=== PATIENT | female | born 1995 | race Caucasian/White ===

== ENCOUNTER 2019-10-20 18:58 | Emergency (ER) | payer MEDICAID, SELFPAY ==
[2019-10-20 19:12] VITALS: BP 119/71; PULSE 95; RESP 18; TEMP 37.2; O2SAT 98; BMI 41.3
[2019-10-20 19:42] LABS: Basophils # 0.1 10^3/uL (0.0-0.1); Basophils % 0.4 %; Eosinophils # 0.2 10^3/uL (0.0-0.8); Eosinophils % 1.4 %; Hematocrit 41.3 % (37.0-47.0); Lymphocytes # 3.3 10^3/uL (0.8-4.8); Lymphocytes % 26.2 %; Mean Corpuscular HGB Conc 31.5 g/dL (30.0-36.0); Mean Corpuscular Hemoglobin 31.4 pg (28.0-34.0); Mean Corpuscular Volume 99.8 fL (81-99); Mean Platelet Volume 10.6 fL (7.4-10.4); Monocytes % 7.7 %; Neutrophils # 8.11 10^3/uL (1.8-7.7); Nucleated Red Blood Cells % 0 %; Platelet Count 277 10^3/cmm (130-400); Red Blood Count 4.14 10^6/uL (4.1-5.3); Red Cell Distribution Width 13.9 % (12.1-15.1); White Blood Count 12.7 10^3/uL (4.0-10.0)
[2019-10-20 20:14] LABS: Alanine Aminotransferase 34 U/L (0-33); Albumin Level 4.1 g/dL (3.5-5.2); Alkaline Phosphatase 72 IU/L (35-105); Aspartate Amino Transferase 17 U/L (0-32); Blood Urea Nitrogen 7 mg/dL (6-20); Calcium 9.2 mg/dL (8.5-10.5); Carbon Dioxide 21 mmol/L (22-29); Chloride 101 mmol/L (98-107); Globulin 3.3 g/dL (1.3-4.6); Glomerular Filtration Rate 152.9 mL/min (90-130); Glucose 88 mg/dL (65-115); Osmolality Calculated 273 mOsm/kg (285-295); Sodium 134 mmol/L (136-145); Total Bilirubin 0.2 mg/dL (0.15-1.2); Total Protein 7.4 g/dL (6.6-8.7)
[2019-10-20 20:15] LABS: Anion Gap 15.9 (5-19); Potassium 3.9 mmol/L (3.5-5.1)
[2019-10-20 20:20] VITALS: BP 127/72; PULSE 109; RESP 18; O2SAT 100
--- NOTE | 2019-10-20 20:28 | ED_ITS ---
HPI - Abdominal Pain General: Chief Complaint: Abdominal Pain Stated Complaint: n/v, abd pain, preg x6 weeks Time Seen by Provider: 10/20/19 20:19 Source: patient Mode of arrival: ambulatory Limitations: no limitations History of Present Illness: HPI narrative: 24-year-old female who is currently 7 weeks . Patient states she had severe vomiting and last 3 days. States she had abdominal cramping from all the vomiting. She denies any vaginal bleeding. She has had a cholecystectomy. She denies any fevers. States is intermittent in nature and denies any worsening improving factors. Associated Symptoms: Reports nausea and vomiting; Denies chills, dysuria and fever(s) Review of Systems Const: Denies: fever(s), chills, body aches or change in appetite Eyes: Denies: blurry vision or eye discomfort ENMT: Denies: throat pain or dental pain Card: Denies: chest pain Resp: Denies: dyspnea GI: Reports: abdominal pain, nausea and vomiting : Denies: dysuria Musc: Denies: neck pain or back pain Skin/Breast: Denies: rash Neuro: Denies: headache(s) Psych: Denies: depression Mitchell/Lymph: Denies: easy bruising All/Imm: Denies: urticaria Physical Exam Const: COMMON NORMALS: no acute distress, patient oriented x3 and healthy appearing HENMT: COMMON NORMALS: normocephalic and atraumatic HEAD & SCALP: normocephalic and atraumatic Eye: COMMON NORMALS: Equal, round and reactive pupils present and EOMs intact bilaterally PUPIL: Yes Equal, round and reactive pupils present Neck/C-Spine: COMMON NORMALS: full ROM and supple Chest: COMMONS NORMALS: normal inspection of the chest and normal palpation of entire chest wall Resp: COMMON NORMALS: normal respiratory effort, No retractions, No use of accessory muscles and clear to auscultation bilaterally AUSCULTATION: clear to auscultation bilaterally Cardio: COMMON NORMALS: regular rate, regular rhythm and No murmurs present (Cardio) RATE: regular rate RHYTHM: regular rhythm GI: COMMON NORMALS: Normal to inspection, nondistended, normoactive bowel sounds present, Soft to palpation, non-tender and no masses PALPATION: Yes Soft to palpation Extremity: COMMON NORMALS: normal to inspection and full ROM Neuro: COMMON NORMALS: patient oriented x3, moves all extremities and no focal motor deficits Psych: COMMON NORMALS: mental status grossly normal, Normal thought process present and cooperative THOUGHT PROCESS: Normal thought process present Skin: COMMON NORMALS: no rashes or lesions noted and no wounds GENERAL SKIN EXAM: no rashes or lesions noted Course Vital Signs: Vital signs: Vital Signs Temperature 98.9 F 10/20/19 19:12 Pulse Rate 75 10/20/19 21:47 Respiratory Rate 18 10/20/19 21:47 Blood Pressure 116/77 10/20/19 21:47 Pulse Oximetry 100 10/20/19 21:47 MDM - Abdominal Pain MDM Narrative: Medical decision making narrative: Patient presents here with hyperemesis gravidarum. She feels much improved after IV Reglan. Patient able tolerate p.o. Patient lab work here is normal. Bedside ultrasound showed IUP roughly 7 to 8 weeks. She is stable for discharge and return if worsening. Lab Data: Labs: Lab Results 10/20/19 10/20/19 Range/Units 19:30 19:30 WBC 12.7 H (4.0-10.0) 10^3/ uL RBC 4.14 (4.1-5.3) 10^6/u L Hgb 13.0 (11.5-15.3) g/dL Hct 41.3 (37.0-47.0) % MCV 99.8 H (81-99) fL MCH 31.4 (28.0-34.0) pg MCHC 31.5 (30.0-36.0) g/dL RDW 13.9 (12.1-15.1) % Plt Count 277 (130-400) 10^3/c mm MPV 10.6 H (7.4-10.4) fL Neut % (Auto) 64.0 % Lymph % (Auto) 26.2 % [place] % (Auto) 7.7 % Eos % (Auto) 1.4 % Baso % (Auto) 0.4 % Neut # (Auto) 8.11 H (1.8-7.7) 10^3/u L Lymph # (Auto) 3.3 (0.8-4.8) 10^3/u L [place] # (Auto) 1.0 H (0.2-0.9) 10^3/u L Eos # (Auto) 0.2 (0.0-0.8) 10^3/u L Baso # (Auto) 0.1 (0.0-0.1) 10^3/u L Nucleated RBC % (a uto) 0 % Nucleated RBCs # 0.0 /100WBC Sodium 134 L (136-145) mmol/L Potassium 3.9 (3.5-5.1) mmol/L Chloride 101 (98-107) mmol/L Carbon Dioxide 21 L (22-29) mmol/L Anion Gap 15.9 (5-19) BUN 7 (6-20) mg/dL Creatinine 0.5 (0.5-0.9) mg/dL GFR Calculation 152.9 H (90-130) mL/min Glucose 88 (65-115) mg/dL Calculated Osmolal ity 273 L (285-295) mOsm/k g Calcium 9.2 (8.5-10.5) mg/dL Total Bilirubin 0.2 (0.15-1.2) mg/dL AST 17 (0-32) U/L ALT 34 H (0-33) U/L Alkaline Phosphata se 72 (35-105) IU/L Total Protein 7.4 (6.6-8.7) g/dL Albumin 4.1 (3.5-5.2) g/dL Globulin 3.3 (1.3-4.6) g/dL Ser , [place] 225[address].00 mIU/mL Discharge Plan Discharge Patient Disposition: Home Clinical Impression: Hyperemesis gravidarum Condition: Stable Prescriptions: New Reglan 10 mg tablet 10 mg PO Q6H PRN (Reason: nausea and vomiting) Qty: 20 RF: 0 Discharge Orders: Discharge Order (Routine); Ordered 10/20/19 Ordered By: Alexei Perry Referrals: Payam Jauregui MD [Primary Care Provider] - 1-3 days Discharge Diet: Advance as tolerated Discharge Activity: Resume usual activity Patient Instructions: Hyperemesis Gravidarum (ED) Discharge Date/Time: 10/20/19 21:49 Coding Level of Care Code ED Airfield Manager for Chg Fwd Exam Comprehensive
[2019-10-20] MEDS: metoclopramide 5 mg/mL SDV 2 mL 10 MG IVP (20:40)
[2019-10-20] MEDS: sodium chloride 0.9% 1,000 ML 999 ML IV (20:40)
[2019-10-20] MEDS: diphenhydrAMINE 50 mg/mL SDV 1mL IVP (20:41)
[2019-10-20 21:30] VITALS: BP 116/77; PULSE 75; RESP 18; O2SAT 100
[2019-10-20 21:47] VITALS: BP 116/77; PULSE 75; RESP 18; O2SAT 100
[2019-10-20 22:19] LABS: Urine Appearance Clear (CLEAR); Urine Color Yellow (Yellow); pH Urine 6.5 (5-7)
[2019-10-20 22:20] LABS: Add Urine Microscopic? YES; Bacteria Urine 1+; Bilirubin Urine Neg (NEGATIVE); Blood Urine Neg (Negative); Glucose Urine UA Norm (Normal); Ketones Urine Negative (Negative); Leukocyte Esterase Urine 2+ (Negative); Mucus Urine 1+; Nitrate Urine Negative (Negative); Protein Urine Neg (Negative); RBC Urine 0-4 /hpf (0-2); Specific Gravity, Urine 1.015 (1.005-1.030); Urobilinogen Urine Norm (Negative); WBC Urine 15-25 /hpf (0-5)
== END 2019-10-20 21:49 | disposition home or self-care (01) ==
PROVIDERS: Nurse Practitioner Family; Emergency Provider Emergency Medicine; PCP Family Medicine
DX: O21.0 Mild hyperemesis gravidarum (principal)
CPT/HCPCS: 12345; 36415; 80053; 81001; 84702; 85025; 96361; 96374; 96375; 99283; J1200; J2765; J7030

== ENCOUNTER 2020-04-08 08:19 | Emergency (ER) | payer BC, MEDICAID, SELFPAY ==
[2020-04-08 08:30] VITALS: BP 135/77; PULSE 102; RESP 18; TEMP 36.7; O2SAT 97; BMI 42.5
[2020-04-08 08:36] VITALS: BP 135/77; PULSE 72; RESP 18; TEMP 36.7; O2SAT 98
--- NOTE | 2020-04-08 08:48 | W.ED.GENADLT ---
HPI - General Adult General: Chief complaint: General Medical Stated complaint: uti/31 Weeks preg Time Seen by Provider: 04/08/20 08:21 History of Present Illness: HPI narrative: Patient is a 31-weeks 24-year-old female who comes to the ED with UTI symptoms. Patient says approximately 2 weeks ago she saw her OB doctor and was diagnosed with a UTI and put on an antibiotic. She says she just finished taking her antibiotic couple days ago and says she still feels some discomfort when she urinates. Mother says movements have been normal states that she is very active most of the time. Denies any blood in the urine, abdominal pain/cramping, fever, chills, nausea or vomiting. Associated symptoms: Deny chest pain, dyspnea, headache(s), nausea, rash, palpitations or vomiting Review of Systems Const: Denies: fever(s), chills or fatigue Eyes: Denies: change in vision or eye discomfort ENMT: Denies: throat pain, odynophagia, nasal discharge or nasal congestion Card: Denies: chest pain, palpitations, edema, swelling of feet/ankles, dyspnea on exertion or orthopnea Resp: Denies: dyspnea, productive cough or non-productive cough GI: Denies: abdominal pain, nausea, vomiting, diarrhea, constipation or hematochezia : Reports: dysuria; Denies: flank pain or hematuria Musc: Denies: neck pain, back pain or extremity swelling Skin/Breast: Denies: rash or new lesions Neuro: Denies: headache(s), numbness in extremities or weakness in extremities Physical Exam Const: COMMON NORMALS: no acute distress, patient oriented x3, healthy appearing and alert GENERAL APPEARANCE: cooperative and comfortable HENMT: COMMON NORMALS: normocephalic HEAD & SCALP: normocephalic MOUTH: Normal oral and palatal mucosa present THROAT: posterior oropharynx normal and uvula midline Neck/C-Spine: COMMON NORMALS: supple GENERAL: Yes normal visual inspection Resp: COMMON NORMALS: normal respiratory effort, No retractions, No use of accessory muscles and clear to auscultation bilaterally AUSCULTATION: clear to auscultation bilaterally Cardio: COMMON NORMALS: regular rate, regular rhythm, S1 normal heart sound present, S2 normal heart sound present, No gallops present (Cardio), No clicks present (Cardio), No murmurs present (Cardio) and Peripheral pulses 2+ throughout RATE: regular rate RHYTHM: regular rhythm HEART SOUNDS: S1 normal heart sound present and S2 normal heart sound present PERIPHERAL PULSES: Peripheral pulses 2+ throughout GI: COMMON NORMALS: Normal to inspection, nondistended, normoactive bowel sounds present, Soft to palpation, non-tender and no masses PALPATION: Yes Soft to palpation : COMMON NORMALS: Yes no CVA tenderness BLADDER/KIDNEY EXAM: Yes no CVA tenderness Back/Pelvis: COMMON NORMALS: no CVA tenderness Extremity: COMMON NORMALS: normal to inspection Neuro: COMMON NORMALS: patient oriented x3 and moves all extremities SENSORIUM/ORIENTATION: Yes alert Skin: GENERAL SKIN EXAM: dry skin Course ED course: Doppler was used to detect heart rate?captured heart rate in 150 bpm. Vital Signs: Vital signs: Vital Signs Temperature 98.0 F 04/08/20 08:36 Pulse Rate 87 04/08/20 10:53 Respiratory Rate 18 04/08/20 10:53 Blood Pressure 134/74 04/08/20 10:53 Pulse Oximetry 98 04/08/20 10:53 MDM - General Adult MDM Narrative: Medical decision making narrative: Patient is a 24-year-old female comes to the ED with dysuria. Patient is 31 weeks and reports no complications. movement normal. Denies any fever, chills, nausea/vomiting, vaginal bleeding, abdominal pain or hematuria. Physical exam unremarkable and Doppler was used and heart rate was detected and captured at 150 bpm. UA showed some white blood cells and trichomonas identified. Patient was given single 2 g of Flagyl while here in the ED, which is the preferred treatment for patients. Patient has a follow-up appointment with her OB doctor on April 12 and I told her to discuss with OB her recent ED visit and treatment for trichomonas. I informed her to inform sexual partners of recent diagnosis for them to be evaluated and possibly treated. Return to ED precautions given. Patient understood and agreed with plan. Lab Data: Attestation: I reviewed the patient's lab results. Labs: Lab Results 04/08/20 Range/Units 08:38 Urine Color Yellow (Yellow) Urine Appearance Hazy A (CLEAR) Urine pH 6 (5-7) Ur Specific Gravit y 1.010 (1.005-1.030) Urine Protein Neg (Negative) Urine Glucose (UA) Norm (Normal) Urine Ketones Negative (Negative) Urine Blood 2+ H (Negative) Urine Nitrate Negative (Negative) Urine Bilirubin Neg (Negative) Urine Urobilinogen Norm (Negative) mg/dL Ur Leukocyte Erin ase 2+ H (Negative) Urine RBC 10-15 H (0-2) /hpf Urine WBC 55-80 H (0-5) /hpf Ur Squamous Epith Cells 10-15 H (0-5) /hpf Ur Transition Epit h Cell 0-4 /hpf Amorphous Sediment Not Reportable Urine Bacteria 2+ H (NONE) /hpf Urine Trichomonas 1+ H /hpf Discharge Plan Discharge Patient Disposition: Home Clinical Impression: Trichomonal infection Condition: Stable Prescriptions: No Action No Known Home Medications RF: 0 Discharge Orders: Discharge ED (Routine); Ordered 04/08/20 Ordered By: Jairo Harden Referrals: Payam Jauregui MD [Primary Care Provider] - Discharge Diet: Regular Discharge Activity: Resume usual activity Patient Instructions: Trichomoniasis (ED) Activity Restrictions/Additional Instructions: Follow-up with your OB provider at your scheduled appointment on April 12 and make sure to tell them about trichomonas found in urine. You were given the single 2 g Flagyl dose while here in the ED to treat trichomonas. Inform sexual partners about finding and that they need to be evaluated and treated. Return to the ER or your medical provider if condition worsens. Please read and understand discharge instructions. If any questions, please ask. Coding Level of Care Code ED Gamma Ray Operator for Suzanne Fwd Exam Comprehensive
[2020-04-08 09:49] LABS: Bilirubin Urine Neg (Negative); Blood Urine 2+ (Negative); Glucose Urine UA Norm (Normal); Ketones Urine Negative (Negative); Leukocyte Esterase Urine 2+ (Negative); Nitrate Urine Negative (Negative); Protein Urine Neg (Negative); Urine Appearance Hazy (CLEAR); Urine Color Yellow (Yellow); Urobilinogen Urine Norm (Negative); pH Urine 6 (5-7)
[2020-04-08 09:50] LABS: WBC Urine 55-80 /hpf (0-5)
[2020-04-08 09:51] LABS: Add Urine Culture? No; Bacteria Urine 2+ /hpf; Transitional Epi Cells Urine 0-4 /hpf; Trichomonas Urine 1+ /hpf
[2020-04-08] MEDS: metroNIDAZOLE 500 MG Tablet 2000 MG PO (10:31)
[2020-04-08 10:53] VITALS: BP 134/74; PULSE 87; RESP 18; O2SAT 98
== END 2020-04-08 10:54 | disposition home or self-care (01) ==
PROVIDERS: Emergency Provider Physician Assistant; PCP Family Medicine
DX: O98.813 Other maternal infectious and parasitic diseases complicating pregnancy, third trimester (principal); A59.9 Trichomoniasis, unspecified; Z3A.31 31 weeks gestation of pregnancy
CPT/HCPCS: 12345; 81001; 99281; 99283

== ENCOUNTER → 2020-04-20 14:36 | Outpatient (BNVA) | payer BC, SELFPAY | PROVIDERS: PCP Family Medicine; Visit Provider Psychiatry & Neurology Psychiatry | DX: F41.1 Generalized anxiety disorder (principal); F33.2 Major depressive disorder, recurrent severe without psychotic features; F43.12 Post-traumatic stress disorder, chronic | CPT/HCPCS: 99204 ==

== ENCOUNTER → 2020-05-18 12:15 | Outpatient (BNVA) | payer BC, SELFPAY | PROVIDERS: PCP Family Medicine; Visit Provider Psychiatry & Neurology Psychiatry | DX: F43.12 Post-traumatic stress disorder, chronic (principal); F33.2 Major depressive disorder, recurrent severe without psychotic features; F41.1 Generalized anxiety disorder | CPT/HCPCS: 99214 ==

== ENCOUNTER 2020-05-28 05:26 | Inpatient (IN) | payer BC, MEDICAID, SELFPAY ==
[2020-05-28] VITALS (73 sets, daily range): BP systolic 85–137; BP diastolic 44–85; PULSE 73–176; RESP 16; TEMP 36.5–36.9; O2SAT 88–97; BMI 41.2
[2020-05-28 02:48] LABS: Nitrazine Paper, PH Inconclusive
[2020-05-28 02:57] LABS: Bilirubin Urine Neg (Negative); Blood Urine Neg (Negative); Glucose Urine UA Norm (Normal); Ketones Urine Negative (Negative); Leukocyte Esterase Urine 2+ (Negative); Nitrate Urine Positive (Negative); Protein Urine Neg (Negative); RBC Urine 0-4 /hpf (0-2); Specific Gravity, Urine 1.025 (1.005-1.030); Urine Color Yellow (Yellow); Urobilinogen Urine Norm (Negative); pH Urine 5 (5-7)
[2020-05-28 02:58] LABS: Actim Prom Positive; Add Urine Culture? No; Bacteria Urine 4+ /hpf; Calcium Oxalate Crystals Urine 15-25 /hpf; Squamous Epithelial Cell Urine 25-40 /hpf (0-5); WBC Urine 15-25 /hpf (0-5)
[2020-05-28 05:37] LABS: Basophils % 0.4 %; Eosinophils # 0.6 10^3/uL (0.0-0.8); Eosinophils % 5.3 %; Hematocrit 36.9 % (37.0-47.0); Lymphocytes % 35.7 %; Mean Corpuscular HGB Conc 32.5 g/dL (30.0-36.0); Mean Corpuscular Hemoglobin 30.6 pg (28.0-34.0); Mean Corpuscular Volume 94.1 fL (81-99); Mean Platelet Volume 11.7 fL (7.4-10.4); Monocytes # 0.7 10^3/uL (0.2-0.9); Monocytes % 6.3 %; Neutrophils # 5.81 10^3/uL (1.8-7.7); Neutrophils % 51.8 %; Nucleated Red Blood Cells % 0 %; Platelet Count 402 10^3/cmm (130-400); Red Blood Count 3.92 10^6/uL (4.1-5.3); Red Cell Distribution Width 13.2 % (12.1-15.1); White Blood Count 11.2 10^3/uL (4.0-10.0)
[2020-05-28] MEDS: lactated ringers 1,000 ML 999 ML IV ×3 (05:49→09:02)
[2020-05-28] MEDS: loperamide 2 mg Capsule 4 MG PO (06:03)
[2020-05-28] MEDS: ondansetron 2 mg/ML SDV 2 mL 4 MG IVP ×2 (07:51→14:34)
--- NOTE | 2020-05-28 09:06 | P.ANESASSM_ITS ---
Pre-Anesthetic Assessment Pre-Anesthetic Assessment: Height/Weight: Height 1.65 m Weight 112.491 kg Temp Pulse Resp BP Pulse Ox 98.1 F 93 16 91/44 96 05/28/20 09:03 05/28/20 09:03 05/28/20 05:10 05/28/20 09:03 05/28/20 09:00 Preop Diagnosis: IUP Proposed Procedure: epidural Familial anesthetic complications: NOne Was Beta Gem taken within 24 hours: N/A Was Clonidine taken within 24 hours: N/A Last intake: NPO except for ice chips Social: Social History: No alcohol and No tobacco Exam: Pre-Anes Outpt Exam: alert, oriented x 3, clear to auscultation bilaterally and regular rate & rhythm Airway: Cervical ROM: WNL MP: 3 Dentition: Full Metabolic: Metabolic: Morbid obesity Anesthetic Plan: ASA status: 2 Anesthesia: Regional (specify below) Risk of > 500 ml blood loss (7ml/kg in children): Yes, adequate IV access and fluids planned Meds/Allergies Current Medications: Current Medications Generic Name Dose Route Start Last Admin Trade Name Freq PRN Reason Stop Dose Admin Lactated Ringer's 1,000 mls @ 999 m ls/hr 05/28/20 05:24 05/28/20 05:49 Lactated Ringers IV 999 mls/hr .Q1H1M PRN Administration Per L&D Rescitati on Protocol Lactated Ringer's 1,000 mls @ 999 m ls/hr 05/28/20 07:48 05/28/20 09:02 Lactated Ringers IV 999 mls/hr .Q1H1M PRN Administration See label comment s Ondansetron HCl 4 mg 05/28/20 05:24 05/28/20 07:51 Ondansetron 2 Mg /Ml Sdv 2 Ml IVP 4 mg Q4H PRN Administration NAUSEA AND VOMITI NG PFSH Anesthesia PFSH: Social History (Updated 04/20/20 @ 14:53 by Lalo Huang LPN) Smoking and tobacco status: never smoked Second hand smoke exposure: Yes Female Reproductive History: : 3 Data Anesthesia CBC & Chem 7: 05/28/20 04:50 Other Labs: Laboratory Results - last 48 hr 05/28/20 05/28/20 05/28/20 02:26 02:26 04:50 WBC 11.2 H RBC 3.92 L Hgb 12.0 Hct 36.9 L MCV 94.1 MCH 30.6 MCHC 32.5 RDW 13.2 Plt Count 402 H MPV 11.7 H Neut % (Auto) 51.8 Lymph % (Auto) 35.7 [place] % (Auto) 6.3 Eos % (Auto) 5.3 Baso % (Auto) 0.4 Neut # (Auto) 5.81 Lymph # (Auto) 4.0 [place] # (Auto) 0.7 Eos # (Auto) 0.6 Baso # (Auto) 0.0 Nucleated RBC % (auto) 0 Nucleated RBCs # 0.0 Insulin-like GF I Positive Urine Color Yellow Urine Appearance Sl cloudy A Urine pH 5 Ur Specific [place] 1.025 Urine Protein Neg Urine Glucose (UA) Norm Urine Ketones Negative Urine Blood Neg Urine Nitrate Positive H Urine Bilirubin Neg Urine Urobilinogen Norm Ur Leukocyte Esterase 2+ H Urine RBC 0-4 H Urine WBC 15-25 H Ur Squamous Epith Cells 25-40 H Calcium Oxalate Crystal 15-25 H Amorphous Sediment Not Reportable Urine Bacteria 4+ H Cardiac Studies: No Data to Display
--- NOTE | 2020-05-28 09:07 | ANES.PROC ---
Anesthesia Procedures Procedure/Date: 05/28/20 Epidural: Time Out Performed: Yes Consents Signed: Procedure Consent, NPO Consent and No Consent Needed Consent: requested by attending/covering physician, from patient, risks and benefits reviewed and patient agrees to proceed Lumbar Level: L3-L4 Epidural position: sitting Epidural procedure: sterile prep of area, 1% lidocaine to numb the area, 18 g needle, negative for paresthesia passed, neg for paresthesia, test dose given, 1.5% xylocaine 1:200k epi (5 cc), 0.2% Ropivacaine bolus ml (5), placed PCEA, no systemic response, sterile dressing applied, L.U.D. no apparent complications and 0.2% Ropiavacaine @ mls/hr (13) Additional Comments: PRAVEEN at 9 cm after multiple attempts; threaded to 15 cm. Increased comfort with subsequent contraction
[2020-05-28] MEDS: dextrose 5%-lactated ringers 1,000 ML 125 ML IV (10:42)
[2020-05-28] MEDS: oxytocin 30 UNIT/500 ML BAG IV (12:29)
--- NOTE | 2020-05-28 15:48 | P.PCNOB_ITS ---
Delivery Note: Date of delivery: May 28, 2020 this 24-year-old 3 now para 2 female at 38 weeks and 4 days gestation had spontaneous rupture membranes at home and came to [facility] labor and delivery. She is observed for a while and indeed found to have ruptured membranes and began kush. She contracted through the night and received epidural anesthesia this morning. Following epidural anesthesia her contractions spaced way out and she made no more cervical change. Pitocin augmentation was added at a moderate dose which increase the contraction strength. She went very quickly to complete cervical dilatation and delivered by spontaneous vaginal delivery a healthy, viable female infant weighing 6 pounds 11 ounces at 1532. Upon delivery of the head the mouth and nose were suctioned the perineum followed by delivery of the infant. The did not rotated and delivered in transverse position but did well. Mom had a very small left periurethral laceration which required no repair. There was no perineal or vaginal laceration noted. The vaginal vault and cervix were evaluated with no lesions or tears noted. The was suctioned again and laid on mother's abdomen. Maternal grandmother then cut the umbilical cord after approximately 1 minute. The umbilical cord had 3 blood vessels and there was no nuchal cord. The cried well and was slightly wet but was suctioned without whole lot of fluid suctioned. Apgars were 8 and 9 at 1 and 5 minutes respectively. Presently the infant is doing very well with no respiratory distress or other issues. Estimated blood loss approximately 138 mL. Pre-Delivery Course: Mom begin care with this physician early in her and was followed throughout her course without concerns or problems. Maternal blood type was B+ with antibody screen negative. Hepatitis B, hepatitis C, RPR and HIV were negative. Rubella was immune and group B strep was negative. Covid testing was not done yet. The patient had spontaneous rupture membranes at home late last night or early this morning. Delivery: Spontaneous vaginal delivery. Post-Delivery Status: Patient is doing well at this time and will be followed for routine postdelivery care. A&P Assessment and plan (1) Normal spontaneous vaginal delivery: Patient did very well through the labor and delivery process. We will follow her for routine postdelivery care. We will adjust orders as necessary. Status: Acute (2) Generalized anxiety disorder: Patient has been stable on sertraline and will continue 100 mg sertraline daily. Status: Acute Coding Level of Care Code Acute Pest Control Service Technician for [facility] Fwd Diagnoses Normal spontaneous vaginal delivery O80 Generalized anxiety disorder F41.1
[2020-05-28 17:08] LABS: Amphetamines Screen Urine Negative (Negative); Barbiturates Screen Urine Negative (Negative); Benzodiazepines Screen Urine Negative (Negative); Cocaine Screen Urine Negative (Negative); Opiate Screen Urine Negative (Negative); PCP Screen Urine Negative (Negative); THC Screen Urine Negative (Negative)
[2020-05-28] MEDS: HYDROcodone-acetaminophen 5-325 mg Tablet PO (18:16)
[2020-05-28] MEDS: benzocaine-menthol 78 gm Canister 1 SPRAY TOPICAL (19:16)
[2020-05-28] MEDS: ibuprofen 800 mg tablet PO (20:40)
[2020-05-29] MEDS: HYDROcodone-acetaminophen 5-325 mg Tablet PO (00:54)
[2020-05-29 01:27] VITALS: TEMP 36.4
[2020-05-29 01:28] VITALS: BP 126/65; PULSE 80
[2020-05-29 04:25] LABS: Hematocrit 34.3 % (37.0-47.0); Hemoglobin 11.2 g/dL (11.5-15.3); Mean Corpuscular HGB Conc 32.7 g/dL (30.0-36.0); Mean Platelet Volume 11.6 fL (7.4-10.4); Platelet Count 356 10^3/cmm (130-400); Red Blood Count 3.61 10^6/uL (4.1-5.3); Red Cell Distribution Width 13.1 % (12.1-15.1)
[2020-05-29 05:42] VITALS: TEMP 36.4
[2020-05-29 05:43] VITALS: BP 107/56; PULSE 82
--- NOTE | 2020-05-29 07:15 | P.DS_ITS ---
Discharge Providers COLLECTION ANALYST Date of Admission: 05/28/20 05:26 Date of Discharge: 05/29/20 Attending Provider at Admission: Payam Jauregui MD Attending Provider at Discharge: Payam Jauregui MD Primary Care Provider: Payam Jauregui MD Diagnoses at Discharge Discharge Diagnosis (1) Normal spontaneous vaginal delivery: Status: Acute (2) Generalized anxiety disorder: Status: Acute Reason for Visit Reason for Visit: Possible ROM Hospital Course Hospital Course Patient delivered by spontaneous vaginal delivery early yesterday afternoon after spontaneous rupture membranes at home overnight. She has done well since delivery. She is ambulating well and tolerating a regular diet. The is feeding very well. She just had mild lochia with no significant clots or cramping. Information Peripartum Data: Infant Delivery Method: Vaginal Physical Exam Const: COMMON NORMALS: no acute distress, healthy appearing and well nourished Resp: COMMON NORMALS: normal respiratory effort, No retractions and clear to auscultation bilaterally AUSCULTATION: clear to auscultation bilaterally Cardio: COMMON NORMALS: regular rate and regular rhythm RATE: regular rate RHYTHM: regular rhythm GI: COMMON NORMALS: Normal to inspection, nondistended, normoactive bowel sounds present, Soft to palpation and non-tender (Fundus is firm.) PALPATION: Yes Soft to palpation Extremity: COMMON NORMALS: normal to inspection, full ROM and no pedal edema Neuro: COMMON NORMALS: moves all extremities, no focal motor deficits and no sensory deficits noted Psych: COMMON NORMALS: mental status grossly normal, Normal thought process present, cooperative and normal affect THOUGHT PROCESS: Normal thought process present Urinary Catheter Management^: Street: Cath Placed During This Visit: yes, but has since been removed by the nurse Reason for Continuing Indwelling Catheter: Decision to DC Catheter Urinary Catheter Date of Insertion: 05/28/20 Urinary Catheter Time of Insertion: 10:17 Date Urinary Catheter Removed: 05/28/20 Time Urinary Catheter Discontinued: 15:28 Discharge Data Data Completed and Pending: Labs from last 24 hours 05/29/20 05/28/20 03:40 02:26 WBC 14.0 H RBC 3.61 L Hgb 11.2 L Hct 34.3 L MCV 95.0 MCH 31.0 MCHC 32.7 RDW 13.1 Plt Count 356 MPV 11.6 H Urine Opiates Scre en Negative Ur Barbiturates Sc reen Negative Ur Phencyclidine S crn Negative Ur Amphetamines Sc reen Negative U Benzodiazepines Scrn Negative Urine Cocaine Scre en Negative U Marijuana (THC) Screen Negative Vitals: Last Vital Signs Temp 97.5 F L 05/29/20 05:42 Pulse 82 05/29/20 05:43 Resp 16 05/28/20 05:10 BP 107/56 05/29/20 05:43 Pulse Ox 96 05/28/20 09:00 Discharge Plan Discharge Patient Disposition: Home Condition: Stable Prescriptions: New docusate sodium [DOK] 100 mg Capsule 100 mg PO BID Qty: 60 RF: 1 ibuprofen 800 mg Tablet 800 mg PO TID Qty: 60 RF: 2 Continued One-A-Day -1 27 mg iron- 800 mcg-235 mg capsule 1 cap PO DAILY RF: 0 sertraline [Zoloft] 100 mg tablet 100 mg PO DAILY Qty: 30 RF: 2 Discharge Orders: Discharge Order (Routine); Ordered 05/29/20 Ordered By: Payam Jauregui Referrals: Payam Jauregui MD [Primary Care Provider] - 6 Weeks Discharge Diet: Usual diet Discharge Activity: Resume usual activity Discharge Attestations COLLECTION ANALYST Time Spent in Discharge Care*: less than 30 min Specific Discharge Activities: Specific discharge activities: educating patient, documenting/other paperwork and evaluating patient/reviewing data Coding Level of Care Code Acute Outside Sales Account Representative for Suzanne Fwd Diagnoses Normal spontaneous vaginal delivery O80 Generalized anxiety disorder F41.1
[2020-05-29] MEDS: ibuprofen 800 mg tablet PO ×2 (10:34→16:51)
[2020-05-29] MEDS: prenatal vitamin Capsule 1 CAP PO (10:34)
[2020-05-29] MEDS: docusate sodium 100 mg Capsule PO (10:35)
[2020-05-29 10:36] VITALS: BP 131/80; PULSE 88
[2020-05-29 18:05] VITALS: BP 116/78; PULSE 84
== END 2020-05-29 18:05 | disposition home or self-care (01) | DRG 807 ==
LOC: OPOB 09:24 → OBGYN 09:24
PROVIDERS: Admitting Provider Family Medicine; PCP Family Medicine; Visit Provider Family Medicine
DX: O99.344 Other mental disorders complicating childbirth (principal); Z37.0 Single live birth; F41.1 Generalized anxiety disorder; Z3A.38 38 weeks gestation of pregnancy
CPT/HCPCS: 36415; 51702; 59025; 59409; 80306; 81001; 83986; 84112; 85025; 85027; 99211; J2405; J2795

== ENCOUNTER → 2020-08-10 12:27 | Outpatient (BNVA) | payer BC, MEDICAID, SELFPAY | PROVIDERS: PCP Family Medicine; Visit Provider Psychiatry & Neurology Psychiatry | DX: F43.12 Post-traumatic stress disorder, chronic (principal); F33.2 Major depressive disorder, recurrent severe without psychotic features; F41.1 Generalized anxiety disorder | CPT/HCPCS: 99214 ==

== ENCOUNTER → 2020-09-21 13:54 | Outpatient (BNVA) | payer BC, SELFPAY | PROVIDERS: PCP Family Medicine; Visit Provider Social Worker | DX: F33.2 Major depressive disorder, recurrent severe without psychotic features (principal); F41.1 Generalized anxiety disorder; F43.12 Post-traumatic stress disorder, chronic | CPT/HCPCS: 90834 ==

== ENCOUNTER → 2020-10-05 13:29 | Outpatient (BNVA) | payer BC, SELFPAY | PROVIDERS: PCP Family Medicine; Visit Provider Registered Nurse Neonatal Intensive Care | DX: N39.0 Urinary tract infection, site not specified (principal); Z20.2 Contact with and (suspected) exposure to infections with a predominantly sexual mode of transmission | CPT/HCPCS: 81000; 87491; 87591; 87661 ==

== ENCOUNTER → 2023-01-16 11:51 | Outpatient (BNVA) | payer OTHER, MEDICAID, SELFPAY | PROVIDERS: PCP Family Medicine; Visit Provider Family Medicine | DX: A59.9 Trichomoniasis, unspecified (principal) | CPT/HCPCS: 87661 ==

== ENCOUNTER 2023-03-19 17:53 | Emergency (ER) | payer OTHER, MEDICAID, SELFPAY ==
[2023-03-19 18:03] VITALS: BP 139/81; PULSE 80; RESP 17; TEMP 37.1; O2SAT 98; BMI 32.3
--- NOTE | 2023-03-19 18:51 | ED_ITS ---
HPI - Headache General: Chief Complaint: Headache Stated Complaint: headache Time Seen by Provider: 03/19/23 18:47 History of Present Illness: 27-year-old female with a history of maggie sujata comes in for persistent headache for the last 3 days. Patient appears nontoxic. Patient appears in no acute distress. Patient denies any falls or injury. Patient reports some nausea. Patient appears in mild to moderate pain. Review of Systems General: Reports: 10 or more systems reviewed and unremarkable except in HPI and below Neuro: Reports: headache(s) PFS ED PFSH: Medical History IBS (irritable bowel syndrome) Surgical History (Updated 01/08/23 @ 14:30 by Gurdeep Go MD) History of cholecystectomy Family History (Updated 01/08/23 @ 13:49 by Rylee Yarbrough LPN) Other Diabetes Heart disease Hypertension Lung disease Stroke Denies family history of Liver disease CAD (coronary artery disease) Aneurysm Autoimmune disease Clotting disorder Dementia Hyperlipidemia Hyperthyroidism Hypothyroidism Psychiatric illness Chronic kidney disease (CKD) Bleeding disorder Cancer Social History (Updated 01/08/23 @ 13:50 by Rylee Yarbrough LPN) Smoking and tobacco/nicotine status: never used tobacco/nicotine Second hand smoke exposure: Yes Alcohol intake: never Substance/Drug Use: current Substance/Drug use frequency: few times a month Lives independently: Yes Current occupational status: employed Current occupation: INFRASTRUCTURE ARCHITECT Female Reproductive History: Date of last menstrual period: 03/19/23 Physical Exam Const: COMMON NORMALS: patient oriented x3 and alert HENMT: COMMON NORMALS: atraumatic HEAD & SCALP: atraumatic Neck/C-Spine: COMMON NORMALS: full ROM and no meningeal signs Resp: COMMON NORMALS: normal respiratory effort Cardio: COMMON NORMALS: regular rate RATE: regular rate Back/Pelvis: COMMON NORMALS: thoracic and lumbar spine normal to inspection Extremity: COMMON NORMALS: no pedal edema Neuro: COMMON NORMALS: patient oriented x3 SENSORIUM/ORIENTATION: Yes alert MENINGEAL SIGNS: Yes no meningeal signs SPEECH: speech normal Psych: COMMON NORMALS: cooperative Skin: COMMON NORMALS: turgor normal GENERAL SKIN EXAM: turgor normal Course Vital Signs: Vital signs: Vital Signs Temperature 98.7 F 03/19/23 18:03 Pulse Rate 60 03/19/23 19:29 Respiratory Rate 18 03/19/23 19:29 Blood Pressure 127/52 03/19/23 19:29 Pulse Oximetry 98 03/19/23 19:29 Oxygen Delivery Me thod Room Air 03/19/23 18:03 MDM - Headache Medical Decision Making 27-year-old female comes in today with complaints of migraine headache. On exam patient has no focal neurodeficits. Patient moves all extremities well. Pupils are equal and reactive. No meningeal signs. Differential diagnosis includes not limited to meningitis unlikely, migraine headache, stress headache, anxiety, malingering. Patient was medicated with 10 mg dexamethasone, 10 mg of Reglan, and 15 mg ketorolac per IV. Patient had resolution of headache and was discharged home in stable condition. No radiology studies performed this visit Discharge Plan Discharge Patient Disposition: Home Clinical Impression: Migraine Qualifiers: Migraine type: periodic headache syndrome Intractability: not intractable Qualified Code(s): G43.C0 - Periodic headache syndromes in child or adult, not intractable Condition: Stable Prescriptions: No Action trazodone 50 mg tablet 100 mg PO .HS PRN (Reason: insomnia) Qty: 60 2RF neomycin-polymyxin B-dexameth [Maxitrol] 3.5mg/mL-10,000 unit/mL-0.1 % dr ops,suspension 2 drp ophthalmic (eye) QID 7 Days Qty: 5 0RF amoxicillin-pot clavulanate 875-125 mg tablet 1 tab PO BID 7 Days Qty: 14 0RF sertraline 100 mg tablet 100 mg PO DAILY Qty: 30 1RF Discharge Orders: Discharge ED (Routine); Ordered 03/19/23 Ordered By: Greyson Ritter Referrals: Gurdeep Go MD [Primary Care Provider] - Discharge Diet: Usual diet Discharge Activity: Increase activity as tolerated Patient Instructions: Migraine Headache (ED) Activity Restrictions/Additional Instructions: Use acetaminophen and ibuprofen for pain. Drink plenty of water with medications. Follow-up with primary care for further instructions as needed. Coding Level of Care Code ED Automotive Design Drafter for Suzanne Salvdaor
[2023-03-19] MEDS: dexamethasone 10 mg/mL INJ IVP (19:04)
[2023-03-19] MEDS: ketorolac 30 mg/mL INJ 15 MG IVP (19:04)
[2023-03-19] MEDS: metoclopramide 5 mg/mL SDV 2 mL 10 MG IVP (19:04)
[2023-03-19 19:29] VITALS: BP 127/52; PULSE 60; RESP 18; O2SAT 98
[2023-03-19 20:02] VITALS: BP 103/55; PULSE 64; RESP 14; O2SAT 97
== END 2023-03-19 20:03 | disposition home or self-care (01) ==
PROVIDERS: Emergency Provider Nurse Practitioner Family; PCP Family Medicine
DX: G43.C0 Periodic headache syndromes in child or adult, not intractable (principal); Z77.22 Contact with and (suspected) exposure to environmental tobacco smoke (acute) (chronic)
CPT/HCPCS: 96374; 96375; 99284; J1100; J1885; J2765

== ENCOUNTER → 2023-05-16 18:04 | Outpatient (BNVA) | payer SELFPAY | PROVIDERS: PCP Family Medicine; Visit Provider Emergency Medicine | DX: J02.9 Acute pharyngitis, unspecified (principal); Z20.822 Contact with and (suspected) exposure to COVID-19 | CPT/HCPCS: 87071; 87426; 87880 ==

== ENCOUNTER → 2024-02-28 12:53 | Outpatient (BNVA) | payer MEDICAID, SELFPAY | PROVIDERS: PCP Family Medicine | DX: R11.10 Vomiting, unspecified (principal) | CPT/HCPCS: 87400; 87426 ==

== ENCOUNTER 2024-03-17 15:30 | Outpatient (CLI) | payer MEDICAID, SELFPAY ==
--- NOTE | 2024-03-17 15:42 | USR_ITS ---
PROCEDURE INFORMATION: Exam: US First Trimester, Transabdominal and US , Transvaginal Exam date and time: 03/17/2024 3:50 PM Age: 28 years old Clinical indication: Screening exam; Routine US, uterus; Additional info: Dating LABS AND CLINICAL REPORTS: Last menstrual period start date: 12/26/2023 Gestational age (Established): 11 w 5 d Estimated due date (Established): 10/01/2024 TECHNIQUE: Imaging protocol: Real-time transabdominal obstetrical ultrasound of the maternal pelvis and a first trimester , less than 14 weeks 0 days, with image documentation. Transvaginal imaging was used for better evaluation of the fetus, adnexa, and/or cervix. COMPARISON: US OB >= 14 weeks fetus [id number] 01/18/2020 2:26 PM FINDINGS: GESTATION: Gestation: Single intrauterine gestation. Yolk sac is not visible Embryo/ cardiac activity (BPM): 159 bpm Extra-embryonic membranes/Placenta: Unremarkable. No subchorionic bleed. Amniotic/Chorionic fluid: Amniotic and extra-amniotic fluid are normal for gestational age. BIOMETRY: Gestational age (AUA: 13 weeks 3 days KENDALL 09/19/2024 Mean sac diameter: 6.77 cm. EGA (MSD) is 13 w 2 d CRL: 7.21 cm 13 weeks 3 days MATERNAL: Uterus: Unremarkable. 5.9 cm x 9.5 cm x 13.12 cm. Cervix: Cervical length measures 4.2 cm. Right ovary/adnexa: Obscured by lack of adequate acoustic window. Left ovary/adnexa: Obscured by lack of adequate acoustic window. Intraperitoneal space: No intraperitoneal free fluid. US/US OB <=14 wk fetus w transvag IMPRESSION: 1. Single living intrauterine gestation 2. Gestational age 13 weeks 3 days KENDALL 09/19/2024. 3. Normal examination of the cervix 4. The ovaries are not visualized
== END 2024-03-17 15:39 | disposition home or self-care (01) ==
PROVIDERS: PCP Family Medicine; Visit Provider Family Medicine
DX: Z32.01 Encounter for pregnancy test, result positive (principal); Z3A.13 13 weeks gestation of pregnancy
CPT/HCPCS: 76801; 76817

== ENCOUNTER 2024-03-31 11:46 | Emergency (ER) | payer MEDICAID, SELFPAY ==
[2024-03-31 11:53] VITALS: BP 120/72; PULSE 99; RESP 18; TEMP 36.8; O2SAT 99; BMI 44.6
--- NOTE | 2024-03-31 12:01 | ED_ITS ---
HPI - Nausea/Vomiting/Diarrhea 2 General: Chief complaint: Nausea/Vomiting/Diarrhea Stated complaint: NVD (16 wks preg) Time Seen by Provider: 03/31/24 11:51 History of Present Illness: 28-year-old female who is approximately 15 weeks who presents emergency room with nausea vomiting and diarrhea. She initially thought she was having some morning sickness but she has developed diarrhea and vomiting all day for the last couple days. Her son had the same sort of illness with nausea vomiting and diarrhea. No altered mental status. No chest pain. No focal abdominal pain. No known fevers. No vaginal bleeding or discharge. Related Data Home Medications Medication Instructions Recorded Confirmed buspirone 5 mg tablet 5 mg PO BID 03/31/24 03/31/24 cetirizine 10 mg tablet 10 mg PO DAILY PRN allergies 03/31/24 03/31/24 vitamin with calcium 1 tab PO DAILY 03/31/24 03/31/24 no.72-iron 27 mg-folic acid 1 mg tablet ( Vitamins Plus Low Iron) Previous Rx's Medication Instructions Recorded sertraline 100 mg tablet 100 mg PO DAILY #30 tabs 06/04/23 venlafaxine 37.5 mg 37.5 mg PO DAILY #30 caps 06/04/23 capsule,extended release 24 hr (Effexor XR) ondansetron HCl 4 mg tablet 4 mg PO Q8H PRN nausea and 02/04/24 vomiting #10 tabs ondansetron 8 mg disintegrating 8 mg PO Q6H #14 tabs 03/31/24 tablet promethazine 25 mg rectal 25 mg AK Q6H PRN nausea and 03/31/24 suppository vomiting #12 ea Allergies Allergy/AdvReac Type Severity Reaction Status Date / Time tramadol Allergy Severe ADR-Vomitin Verified 02/28/24 12:33 g Review of Systems 2 Narrative: Constitutional symptoms: Negative except as documented in HPI. Skin symptoms: Negative except as documented in HPI. Eye symptoms: Negative except as documented in HPI. ENMT symptoms: Negative except as documented in HPI. Respiratory symptoms: Negative except as documented in HPI. Cardiovascular symptoms: Negative except as documented in HPI. Gastrointestinal symptoms: Negative except as documented in HPI. Genitourinary symptoms: Negative except as documented in HPI. Musculoskeletal symptoms: Negative except as documented in HPI. Neurologic symptoms: Negative except as documented in HPI. Psychiatric symptoms: Negative except as documented in HPI. Endocrine symptoms: Negative except as documented in HPI. PFSH ED 2 PFSH: Medical History Psychiatric care IBS (irritable bowel syndrome) Surgical History History of cholecystectomy Family History Other Diabetes Heart disease Hypertension Lung disease Stroke Denies family history of Liver disease CAD (coronary artery disease) Aneurysm Autoimmune disease Clotting disorder Dementia Hyperlipidemia Hyperthyroidism Hypothyroidism Psychiatric illness Chronic kidney disease (CKD) Bleeding disorder Cancer Social History Smoking and tobacco/nicotine status: never used tobacco/nicotine Second hand smoke exposure: Yes Alcohol intake: never Substance/Drug Use: current Substance/Drug use frequency: few times a month Lives independently: Yes Current occupational status: employed Current occupation: [employer] Physical Exam 2 Narrative: EXAM NARRATIVE: General: Alert, no acute distress. Skin: Warm, dry. Head: Normocephalic, atraumatic. Neck: Supple, trachea midline. Eye: Extraocular movements are intact. Ears, nose, mouth and throat: Tacky oral mucosa Cardiovascular: Regular, Normal peripheral perfusion. Respiratory: Lungs are clear to auscultation, respirations are non-labored, breath sounds are equal, Symmetrical chest wall expansion. Gastrointestinal: Soft, no focal abnormalities, gravid Musculoskeletal: Normal ROM, no deformity. Neurological: Alert and oriented, No focal neurological deficit observed. Psychiatric: Cooperative, appropriate mood & affect. Course 2 Vital Signs: Vital signs: Vital Signs Temperature 98.3 F 03/31/24 11:53 Pulse Rate 81 03/31/24 15:21 Respiratory Rate 17 03/31/24 14:10 Blood Pressure 104/69 03/31/24 15:21 Pulse Oximetry 96 03/31/24 15:21 Oxygen Delivery Me thod Room Air 03/31/24 14:10 MDM - Nausea/Vomiting/Diarrhea Medical Decision Making Medical decision making: Differential diagnosis for this patient with nausea and vomiting including but not limited to and based on the above HPI, review of systems and physical exam: Urinary tract infection. Appendicitis. Cholecystis. colitis. small bowel obstruction. crohn's flare. pancreatitis. gastritis. peptic ulcer. cyclic vomiting. Viral illness. Influenza. COVID. Orders placed to evaluate differential diagnosis based on the above differential, HPI and physical exam Lab Review: Laboratory results were reviewed and interpreted by myself the emergency room physician. Lab work is fairly unremarkable. Mild leukocytosis. No anemia. No renal failure. Lipase is negative. Urinalysis is negative for infection. I reviewed the patient's medical record. Reexamination: Patient after Zofran and then Compazine and Benadryl and another dose of Zofran is now tolerating p.o. She is received fluids. No altered mental status. No abdominal pain. heart tones are 145. Assessment and plan: Viral gastroenteritis Dehydration ? 8 mg IV Zofran without change. IV Compazine and IV Benadryl. Then IV Pepcid and IV Zofran prior to discharge. - Discharged home - Discussed plan with patient. Answered any questions. - Evaluation and treatment of this problem were appropriate in the emergency setting. Lab Data 03/31/24 11:55 03/31/24 11:55 Laboratory Results WBC 13.55 10^3/uL (3.29-11.43) H 03/31/24 11:55 RBC 4.66 10^6/uL (3.85-5.65) 03/31/24 11:55 Hgb 14.20 g/dL (11.27-16.99) 03/31/24 11:55 Hct 42.9 % (36-47) 03/31/24 11:55 MCV 92.1 fl (85-98) 03/31/24 11:55 MCH 30.5 pg (27-33) 03/31/24 11:55 MCHC 33.1 g/dL (30-55) 03/31/24 11:55 RDW 13.5 % (12.1-15.1) 03/31/24 11:55 Plt Count 425 10^3/cmm (157-399) H 03/31/24 11:55 MPV 10.4 fL (7.4-10.4) 03/31/24 11:55 Neut % (Auto) 74.8 % 03/31/24 11:55 Lymph % (Auto) 19.6 % 03/31/24 11:55 [place] % (Auto) 3.8 % 03/31/24 11:55 Eos % (Auto) 1.0 % 03/31/24 11:55 Baso % (Auto) 0.4 % 03/31/24 11:55 Neut # (Auto) 10.14 10^3/uL (1.8-7.7) H 03/31/24 11:55 Lymph # (Auto) 2.7 10^3/uL (0.8-4.8) 03/31/24 11:55 [place] # (Auto) 0.5 10^3/uL (0.2-0.9) 03/31/24 11:55 Eos # (Auto) 0.1 10^3/uL (0.0-0.8) 03/31/24 11:55 Baso # (Auto) 0.1 10^3/uL (0.0-0.1) 03/31/24 11:55 Nucleated RBC % (auto) 0 % 03/31/24 11:55 Nucleated RBCs # 0.0 /100WBC 03/31/24 11:55 Sodium 134 mmol/L (136-145) L 03/31/24 11:55 Potassium 3.6 mmol/L (3.5-5.1) 03/31/24 11:55 Chloride 98 mmol/L (98-107) 03/31/24 11:55 Carbon Dioxide 20 mmol/L (22-29) L 03/31/24 11:55 Anion Gap 19.6 (5-19) H 03/31/24 11:55 BUN 8 mg/dL (6-20) 03/31/24 11:55 Creatinine 0.5 mg/dL (0.5-0.9) 03/31/24 11:55 GFR Calculation 148.0 mL/min (90-130) H 03/31/24 11:55 Glucose 104 mg/dL (65-115) 03/31/24 11:55 Calculated Osmolality 277 mOsm/kg (285-295) L 03/31/24 11:55 Calcium 9.3 mg/dL (8.5-10.5) 03/31/24 11:55 Total Bilirubin 0.3 mg/dL (0.15-1.2) 03/31/24 11:55 AST 17 U/L (0-32) 03/31/24 11:55 ALT 12 U/L (0-33) 03/31/24 11:55 Alkaline Phosphatase 84 U/L (35-105) 03/31/24 11:55 Total Protein 8.0 g/dL (6.6-8.7) 03/31/24 11:55 Albumin 4.3 g/dL (3.5-5.2) 03/31/24 11:55 Globulin 3.7 g/dL (1.3-4.6) 03/31/24 11:55 Lipase 25 U/L (13-60) 03/31/24 11:55 Urine Color Dark yellow (Yellow) A 03/31/24 14:22 Urine Appearance Clear (CLEAR) 03/31/24 14:22 Urine pH 6.0 (5-7) 03/31/24 14:22 Ur Specific [place] 1.028 (1.005-1.030) 03/31/24 14:22 Urine Protein 1+ (Negative) A 03/31/24 14:22 Urine Glucose (UA) Negative (Normal) 03/31/24 14:22 Urine Ketones 4+ (Negative) 03/31/24 14:22 Urine Blood Trace (Negative) A 03/31/24 14:22 Urine Nitrate Negative (Negative) 03/31/24 14:22 Urine Bilirubin Negative (Negative) 03/31/24 14:22 Urine Urobilinogen 1.0 mg/dL (Negative) 03/31/24 14:22 Ur Leukocyte Esterase Negative (Negative) 03/31/24 14:22 Urine RBC 6-10 /hpf (0-2) 03/31/24 14:22 Urine WBC 0-5 /hpf (0-5) 03/31/24 14:22 Ur Squamous Epith Cells 0-5 /hpf (0-5) 03/31/24 14:22 Amorphous Sediment Not Reportable 03/31/24 14:22 Urine Bacteria 1+ /hpf (NONE) H 03/31/24 14:22 Hyaline Casts 4.52 /lpf 03/31/24 14:22 No radiology studies performed this visit Discharge Plan Discharge Patient Disposition: Home Clinical Impression: Gastroenteritis, Dehydration Condition: Stable Prescriptions: New promethazine 25 mg suppository 25 mg AK Q6H PRN (Reason: nausea and vomiting) Qty: 12 0RF ondansetron 8 mg tablet,disintegrating 8 mg PO Q6H Qty: 14 0RF Rx Instructions: Take 1/2-1 tab every 6 hours as needed for nausea and vomiting No Action ondansetron HCl 4 mg tablet 4 mg PO Q8H PRN (Reason: nausea and vomiting) Qty: 10 0RF venlafaxine [Effexor XR] 37.5 mg capsule,extended release 24hr 37.5 mg PO DAILY Qty: 30 0RF sertraline 100 mg tablet 100 mg PO DAILY Qty: 30 0RF Vitamin Plus Low Iron 27 mg iron- 1 mg tablet 1 tab PO DAILY cetirizine 10 mg tablet 10 mg PO DAILY PRN (Reason: allergies) buspirone 5 mg tablet 5 mg PO BID Discharge Orders: Discharge ED (Routine); Ordered 03/31/24 Ordered By: Annia Yip Referrals: Saumya Dave DO [Primary Care Provider] - Discharge Diet: Usual diet Discharge Activity: Increase activity as tolerated Patient Instructions: Gastroenteritis (ED), Opioid Safety, Pain Management Activity Restrictions/Additional Instructions: Thank you for choosing [facility] for your healthcare needs today. Please realize this is an emergency room and that we are providing you with a medical screening exam and this may not be complete and all inclusive of all the testing and or work up that you may need to determine your ailment or severity of your illness. You have been screened and evaluated and felt safe for discharge. Health conditions do change or evolve sometimes and as such it is important that you follow up with your Primary Doctor to be re checked, 3-5 days is a general good time frame for follow up. You are always welcome to return to the ED for re assessment if your symptoms are worsening or you have new concerns Coding Level of Care Code ED Health And Safety Tech for Suzanne Salvador
[2024-03-31] MEDS: sodium chloride 0.9% 1,000 ML 999 ML IV (12:05)
[2024-03-31] MEDS: ondansetron 2 mg/ML SDV 2 mL 8 MG IVP ×2 (12:06→14:02)
[2024-03-31 12:13] LABS: Basophils # 0.1 10^3/uL (0.0-0.1); Basophils % 0.4 %; Eosinophils # 0.1 10^3/uL (0.0-0.8); Hematocrit 42.9 % (36-47); Lymphocytes # 2.7 10^3/uL (0.8-4.8); Lymphocytes % 19.6 %; Mean Corpuscular HGB Conc 33.1 g/dL (30-55); Mean Corpuscular Hemoglobin 30.5 pg (27-33); Mean Corpuscular Volume 92.1 fl (85-98); Mean Platelet Volume 10.4 fL (7.4-10.4); Monocytes # 0.5 10^3/uL (0.2-0.9); Monocytes % 3.8 %; Neutrophils # 10.14 10^3/uL (1.8-7.7); Neutrophils % 74.8 %; Nucleated Red Blood Cells % 0 %; Platelet Count 425 10^3/cmm (157-399); Red Blood Count 4.66 10^6/uL (3.85-5.65); Red Cell Distribution Width 13.5 % (12.1-15.1); White Blood Count 13.55 10^3/uL (3.29-11.43)
[2024-03-31 12:25] VITALS: BP 122/78; PULSE 88; O2SAT 100
[2024-03-31 12:30] VITALS: PULSE 89; O2SAT 98
[2024-03-31 12:31] LABS: Alanine Aminotransferase 12 U/L (0-33); Albumin Level 4.3 g/dL (3.5-5.2); Alkaline Phosphatase 84 U/L (35-105); Anion Gap 19.6 (5-19); Aspartate Amino Transferase 17 U/L (0-32); Blood Urea Nitrogen 8 mg/dL (6-20); Calcium 9.3 mg/dL (8.5-10.5); Carbon Dioxide 20 mmol/L (22-29); Chloride 98 mmol/L (98-107); Creatinine Clr Calc Pharmacy 213.4274; Globulin 3.7 g/dL (1.3-4.6); Glucose 104 mg/dL (65-115); Lipase 25 U/L (13-60); Osmolality Calculated 277 mOsm/kg (285-295); Potassium 3.6 mmol/L (3.5-5.1); Sodium 134 mmol/L (136-145); Total Bilirubin 0.3 mg/dL (0.15-1.2)
[2024-03-31] MEDS: prochlorperazine 10 mg/2 mL Inj IVP (13:11)
[2024-03-31] MEDS: diphenhydrAMINE 50 mg/mL SDV 1mL IVP (13:12)
[2024-03-31 13:17] VITALS: PULSE 86; O2SAT 100
[2024-03-31] MEDS: famotidine 20 mg/2 mL INJ 40 MG IVP (14:06)
[2024-03-31 14:10] VITALS: BP 100/64; PULSE 72; RESP 17; O2SAT 98
--- NOTE | 2024-03-31 14:19 | PC.NURSE ---
heart tones 146.
[2024-03-31 14:29] LABS: Bilirubin Urine Negative (Negative); Blood Urine Trace (Negative); Glucose Urine UA Negative (Normal); Ketones Urine 4+ (Negative); Leukocyte Esterase Urine Negative (Negative); Nitrate Urine Negative (Negative); Protein Urine 1+ (Negative); Specific Gravity, Urine 1.028 (1.005-1.030); Urine Appearance Clear (CLEAR); Urine Color Dark Yellow (Yellow)
[2024-03-31 14:34] LABS: Bacteria Urine 1+ /hpf; Hyaline Casts Urine 4.52 /lpf; Squamous Epithelial Cell Urine 0-5 /hpf (0-5); WBC Urine 0-5 /hpf (0-5)
[2024-03-31 15:21] VITALS: BP 104/69; PULSE 81; O2SAT 96
== END 2024-03-31 15:22 | disposition home or self-care (01) ==
PROVIDERS: Emergency Provider Emergency Medicine; PCP Family Medicine
DX: K52.9 Noninfective gastroenteritis and colitis, unspecified (principal); E86.0 Dehydration; Z3A.15 15 weeks gestation of pregnancy
CPT/HCPCS: 80053; 81001; 83690; 85025; 96361; 96374; 96375; 96376; 99284; J0780; J1200; J2405; J3490; J7030

== ENCOUNTER 2024-05-13 14:16 | Outpatient (CLI) | payer MEDICAID, SELFPAY ==
--- NOTE | 2024-05-13 14:21 | USR_ITS ---
PROCEDURE INFORMATION: Exam: US After First Trimester, Transabdominal Exam date and time: 05/13/2024 2:39 PM Age: 28 years old Clinical indication: Screening exam; Routine US, uterus; Additional info: Second trimester care/anatomy check LABS AND CLINICAL REPORTS: Gestational age (Established): 21 w 4 d Estimated due date (Established): 09/19/2024 TECHNIQUE: Imaging protocol: Real-time transabdominal obstetrical ultrasound of the maternal pelvis and a second or third trimester with image documentation. COMPARISON: US OB <=14 wk fetus w transvag 03/17/2024 3:50 PM FINDINGS: Gestation: Single live intrauterine gestation. heart rate: 155 bpm presentation and position: Transverse presentation with baby's head on maternal left. Placenta: Anterior placenta. No obvious previa. Amniotic fluid (Qualitative): Amniotic fluid is normal for gestational age. Amniotic fluid index: Not calculated ANATOMY: midline falx: Normal cerebellum: Normal lateral ventricles: Normal cisterna magna: Normal choroid plexus: Normal face: Not well visualized heart four-chamber view, heart size and position: Normal heart right ventricular outflow tract: Normal heart left ventricular outflow tract: Normal kidneys: Normal stomach: Normal urinary bladder: Normal spine: Normal Umbilical cord and insertion: Normal three-vessel with normal insertions upper limbs: Normal lower limbs: Normal external genitalia: Male BIOMETRY: Gestational age (AUA): 21 weeks and 5 days. Menstrual dating estimated gestational age to be 21 weeks and 4 days. Estimated due date (AUA): September 18, 2024. Menstrual dating estimates the gestational age to be September 19, 2024. Estimated weight: 441.03 g or 1 lb 0 oz. Forty-nine percentile. EFW by AC, BPD, FL, HC, [place] 1985 Biparietal diameter (BPD): 5.28 cm. EGA (BPD) is 22 w 0 d. 66.5 % percentile Head circumference (HC): 19.86 cm. EGA (HC) is 22 w 0 d. 59.7 % percentile Abdominal circumference (AC): 16.68 cm. EGA (AC) is 21 w 5 d. 46.9 % percentile Femur length (FL): 3.62 cm. EGA (FL) is 21 w 3 d. 37.1 % percentile HC/AC: 1.19. (Normal range: 1.06 - 1.24) FL/HC: 18.23. (Normal range: 17.69 - 20.23) FL/BPD: 68.56 FL/AC: 21.7. (Normal range: 20 - 24) MATERNAL: Uterus: Single live intrauterine baby. Cervix: Most of the maternal cervix is obscured by shadowing. Right ovary/adnexa: Obscured by lack of adequate acoustic window. Left ovary/adnexa: Obscured by lack of adequate acoustic window. Intraperitoneal space: No intraperitoneal free fluid. US/US OB >= 14 weeks fetus [id number] IMPRESSION: 1. Most of the maternal cervix is obscured by shadowing. 2. facial structures are not well visualized. Otherwise, unremarkable survey. 3. Otherwise, unremarkable obstetrical ultrasound.
== END 2024-05-13 14:17 | disposition home or self-care (01) ==
PROVIDERS: PCP Family Medicine; Visit Provider Family Medicine
DX: Z34.82 Encounter for supervision of other normal pregnancy, second trimester (principal); Z3A.21 21 weeks gestation of pregnancy
CPT/HCPCS: 76805

== ENCOUNTER 2024-05-28 14:04 | Outpatient (CLI) | payer MEDICAID, SELFPAY ==
--- NOTE | 2024-05-28 14:08 | USR_ITS ---
PROCEDURE INFORMATION: Exam: US , Limited Exam date and time: 05/28/2024 2:37 PM Age: 28 years old Clinical indication: Screening exam; Routine US, uterus; Additional info: Encounter for other screening LABS AND CLINICAL REPORTS: Gestational age (Established): 23 w 5 d Estimated due date (Established): 09/19/2024 TECHNIQUE: Imaging protocol: Real-time ultrasound of the maternal uterus with image documentation. Exam focused on the clinical indication. COMPARISON: US OB >= 14 weeks fetus [id number] 05/13/2024 2:39 PM FINDINGS: Gestation: Single viable IUP in cephalic presentation. nose, lips and profile are unremarkable. No worrisome abnormality noted. Placenta located anteriorly within the fundus. heart rate: 155 bpm MATERNAL: Cervix: Cervical length measures 5 cm. US/US OB limited [id number] IMPRESSION: Unremarkable viable IUP
== END 2024-05-28 14:05 | disposition home or self-care (01) ==
PROVIDERS: PCP Family Medicine; Visit Provider Family Medicine
DX: Z36.2 Encounter for other antenatal screening follow-up (principal); Z3A.23 23 weeks gestation of pregnancy
CPT/HCPCS: 76815

== ENCOUNTER 2024-07-20 12:53 | Outpatient (CLI) | payer MEDICAID, SELFPAY ==
--- NOTE | 2024-07-20 12:56 | US_ITS ---
WS: [id number] LIMITED OBSTETRICAL ULTRASOUND HISTORY: GROWTH CHECK/UTERINE SIZE-DATE DISCREPANCY, 3RD TRIMESTER COMPARISON: 03/17/2024, 05/13/2024 and 05/28/2024 Presentation: Vertex. Cervix: Closed and normal length. Placenta: Anterior towards the fundus. No previa or abruption. Grade: 1 HEART: FHR of 178 BPM. measurements: BPD = 7.9 cm = 31w4d; 46% HC = 28.8 cm = 31w4d; 23% AC = 27.2 cm = 31w2d; 47% FL = 6.0 cm = 31w1d; 32% OSNU: 17.1 cm EFW: 1737.5 g; 40th % AGA by ultrasound: 31w3d KENDALL by ultrasound: 09/18/2024 Measurements are internally concordant. Appropriate growth since her first trimester ultrasound. No growth asymmetry. [place] [id number] IMPRESSION: 1. Single intrauterine gestation of 31w3d with an KENDALL of 09/18/2024. Appropria te growth since a first trimester ultrasound. No growth asymmetry. 2. Estimated weight at the 48th percentile. 3. Normal amniotic fluid.
== END 2024-07-20 12:54 | disposition home or self-care (01) ==
PROVIDERS: PCP Family Medicine; Visit Provider Family Medicine
DX: O26.843 Uterine size-date discrepancy, third trimester (principal); Z3A.31 31 weeks gestation of pregnancy
CPT/HCPCS: 76816

== ENCOUNTER 2024-09-12 04:25 | Inpatient (IN) | payer MEDICAID, SELFPAY ==
[2024-09-12] VITALS (17 sets, daily range): BP systolic 115–156; BP diastolic 68–82; PULSE 80–120; RESP 16–17; TEMP 35.8–36.8; O2SAT 97–98; BMI 53.0
[2024-09-12 04:27] LABS: Hematocrit 39.4 % (36-47); Hemoglobin 13.40 g/dL (11.27-16.99); Mean Corpuscular HGB Conc 34.0 g/dL (30-55); Mean Corpuscular Hemoglobin 31.0 pg (27-33); Mean Corpuscular Volume 91.2 fl (85-98); Nucleated Red Blood Cells % 0 %; Platelet Count 361 10^3/cmm (157-399); Red Blood Count 4.32 10^6/uL (3.85-5.65); White Blood Count 16.54 10^3/uL (3.29-11.43)
--- NOTE | 2024-09-12 04:50 | PM.OPHPUD ---
Labor & Delivery H&P Update Date of Procedure: September 12, 2024 Date H&P Performed: 09/12/24 Admission Diagnosis: Active labor IUP 39 weeks gestation Planned procedure: Expectant management of labor and delivery
--- NOTE | 2024-09-12 04:51 | P.PCNOB_ITS ---
Delivery Note: Date of delivery: September 12, 2024 Estimated blood loss (mL): 100 Pre-Delivery Course: The patient had routine care with Dr. Dave at [facility]. Delivery: This is a 29-year-old G5, P4 at 39 weeks gestation who presented to labor and delivery complaining of contractions. Her cervix was 2 cm and 30% effaced so she was allowed to walk and an hour later she remained unchanged. However her contractions significantly intensified and she progressed rather precipitously. She was unable to receive an epidural due to the speed at which she progressed. Additionally she also dislodged her first IV and required a second 1. The first time I checked the patient she was completely dilated and baby was 0 station. I performed artificial rupture of membranes digitally with clear fluid. She only had to push through 1 contraction and had a normal spontaneous vaginal delivery of a viable male weight 3530gms, Apgars 8 and 9 over an intact perineum. The was suctioned at delivery and placed on the mother's chest. The cord was clamped and cut. The placenta was delivered grossly intact and normal to inspection. There were no lacerations. Mother and were doing well after delivery. A&P Assessment and plan 1. Normal spontaneous vaginal delivery: PDMP PDMP Reviewed: Not Reviewed Coding Level of Care Code Acute Code for Chg Fwd Diagnoses Normal spontaneous vaginal delivery O80
[2024-09-12] MEDS: HYDROcodone-acetaminophen 5-325 mg Tablet PO (05:26)
[2024-09-12] MEDS: benzocaine-menthol 78 gm Canister 1 SPRAY TOPICAL (06:26)
[2024-09-12] MEDS: PRENATAL VIT NO.130/IRON/FOLIC 1 EACH TABLET PO (09:26)
[2024-09-12 16:55] LABS: Hematocrit 37.1 % (36-47); Hemoglobin 12.30 g/dL (11.27-16.99); Mean Corpuscular HGB Conc 33.2 g/dL (30-55); Mean Corpuscular Hemoglobin 31.1 pg (27-33); Mean Corpuscular Volume 93.7 fl (85-98); Platelet Count 339 10^3/cmm (157-399); Red Blood Count 3.96 10^6/uL (3.85-5.65); White Blood Count 20.12 10^3/uL (3.29-11.43)
[2024-09-13 04:29] VITALS: BP 126/70; PULSE 75; RESP 17; TEMP 36.7; O2SAT 97
--- NOTE | 2024-09-13 12:28 | PM.DCS ---
Discharge Providers Date of Admission: 09/12/24 04:25 Date of Discharge: September 13, 2024 Attending Provider at Admission: Kirstin Woody MD Attending Provider at Discharge: Kirstin Woody MD Primary Care Provider: Saumya Dave DO Diagnoses at Discharge Discharge Diagnosis 1. Normal spontaneous vaginal delivery: Reason for Visit Reason for Visit: ctx Hospital Course Hospital Course This is a 29-year-old G5 now P5 who presented to labor and delivery in active labor. She progressed rather precipitously and did not have time to receive an epidural. She had artificial rupture of membranes less than 10 minutes prior to delivery with clear fluid. She only had to push through 1 contraction and had a normal spontaneous vaginal delivery of a viable male weight 3530 g Apgars 8 and 9. Mother and have done well. Mother is ambulating, tolerating a regular diet, has surprisingly light vaginal bleeding and is comfortable with discharge home Physical Exam Narrative: Sitting up in bed, heart regular rate and rhythm, lungs clear to auscultation bilaterally, abdomen is soft and nontender, fundus is firm, extremities have 1+ edema but no calf tenderness Discharge Data Studies Completed and Pending Laboratory Results WBC 20.12 10^3/uL (3.29-11.43) H 09/12/24 16:47 RBC 3.96 10^6/uL (3.85-5.65) 09/12/24 16:47 Hgb 12.30 g/dL (11.27-16.99) 09/12/24 16:47 Hct 37.1 % (36-47) 09/12/24 16:47 MCV 93.7 fl (85-98) 09/12/24 16:47 MCH 31.1 pg (27-33) 09/12/24 16:47 MCHC 33.2 g/dL (30-55) 09/12/24 16:47 RDW 13.4 % (12.1-15.1) 09/12/24 16:47 Plt Count 339 10^3/cmm (157-399) 09/12/24 16:47 MPV 11.4 fL (7.4-10.4) H 09/12/24 16:47 Neut % (Auto) 62.9 % 09/12/24 04:05 Lymph % (Auto) 28.5 % 09/12/24 04:05 Gentry % (Auto) 5.8 % 09/12/24 04:05 Eos % (Auto) 1.7 % 09/12/24 04:05 Baso % (Auto) 0.3 % 09/12/24 04:05 Neut # (Auto) 10.39 10^3/uL (1.8-7.7) H 09/12/24 04:05 Lymph # (Auto) 4.7 10^3/uL (0.8-4.8) 09/12/24 04:05 Gentry # (Auto) 1.0 10^3/uL (0.2-0.9) H 09/12/24 04:05 Eos # (Auto) 0.3 10^3/uL (0.0-0.8) 09/12/24 04:05 Baso # (Auto) 0.1 10^3/uL (0.0-0.1) 09/12/24 04:05 Nucleated RBC % (auto) 0 % 09/12/24 04:05 Nucleated RBCs # 0.0 /100WBC 09/12/24 04:05 Insulin-like GF I Negative 09/12/24 02:46 Blood Type B Positive 09/12/24 04:05 Rho(D) Type Rh positive 09/12/24 04:05 Antibody Screen Negative 09/12/24 04:05 Vitals Last Vital Signs Temp 98.1 F 09/13/24 04:29 Pulse 75 09/13/24 04:29 Resp 17 09/13/24 04:29 BP 126/70 09/13/24 04:29 Pulse Ox 97 09/13/24 04:29 O2 Del Method Room Air 09/13/24 04:29 Discharge Plan Discharge Patient Disposition: Home Condition: Stable Prescriptions: Continued ondansetron HCl 4 mg tablet 4 mg PO Q8H PRN (Reason: nausea and vomiting) Qty: 10 0RF venlafaxine [Effexor XR] 37.5 mg capsule,extended release 24hr 37.5 mg PO DAILY Qty: 30 0RF sertraline 100 mg tablet 100 mg PO DAILY Qty: 30 0RF Vitamin Plus Low Iron 27 mg iron- 1 mg tablet 1 tab PO DAILY cetirizine 10 mg tablet 10 mg PO DAILY PRN (Reason: allergies) buspirone 5 mg tablet 5 mg PO BID promethazine 25 mg suppository 25 mg NC Q6H PRN (Reason: nausea and vomiting) Qty: 12 0RF ondansetron 8 mg tablet,disintegrating 8 mg PO Q6H Qty: 14 0RF Rx Instructions: Take 1/2-1 tab every 6 hours as needed for nausea and vomiting Discharge Order = DC NOW: Discharge Order (Routine); Ordered 09/13/24 Ordered By: Kirstin Woody Referrals: Saumya Dave DO [Primary Care Provider, PRODUCT MARKETING COORDINATOR] - 6 Weeks Discharge Diet: Usual diet Discharge Activity: Limit activity as instructed Patient Instructions: Depression (DC), Bleeding (DC), Preeclampsia and Eclampsia After Delivery (GEN), Hemorrhage (DC), OB Discharge Report, OB Food/Drug Interaction Guide, OB Home Care, OB Pr[facility] Parent Packet, OB Vaginal Deliveries Activity Restrictions/Additional Instructions: Nothing per vagina for 6 weeks Discharge Attestations Time Spent in Discharge Care*: less than 30 min Quality Metrics Clinical Quality Measures [ No reported AMI, CVA or VTE this stay] Coding Level of Care Code Acute Code for Chg Fwd Diagnoses Normal spontaneous vaginal delivery O80
[2024-09-13 14:06] VITALS: BP 132/85; PULSE 94; RESP 16; TEMP 36.7; O2SAT 96
== END 2024-09-13 14:20 | disposition home or self-care (01) | DRG 807 ==
LOC: OPOB 04:40 → OBGYN 04:40
PROVIDERS: Admitting Provider Family Medicine; PCP Family Medicine; Visit Provider Family Medicine
DX: O80 Encounter for full-term uncomplicated delivery (principal); Z37.0 Single live birth; Z3A.39 39 weeks gestation of pregnancy
CPT/HCPCS: 36415; 59025; 59409; 84112; 85025; 85027; 86850; 86900; 99211; J7120; J9999; Q0162

== ENCOUNTER 2025-02-11 07:03 | Day surgery (SDC) | payer MEDICAID, SELFPAY ==
[2025-02-11] VITALS (11 sets, daily range): BP systolic 108–120; BP diastolic 55–71; PULSE 69–107; RESP 16–18; TEMP 36.2–36.6; O2SAT 92–97; BMI 48.0
--- NOTE | 2025-02-11 00:33 | W.PM.OPSFHP ---
Same Day Surgery H&P Indication for Procedure/HPI DATE OF PROCEDURE: February 11, 2025 CHIEF COMPLAINT/INDICATIONFOR SURGICAL PROCEDURE: desires permanent sterilization PREOP DIAGNOSIS: desires permanent sterilization PLANNED PROCEDURE: Operation Date: 02/11/25 08:25 Proposed Procedures p Laparoscopic BILATERAL Salpingectomy 65136 Z30.2(Bilateral) - Last Culver MD Medications/Allergies* Home Medications ?Medication ?Instructions ?Recorded ?Confirmed ?Type buspirone 5 mg tablet 5 mg PO BID 03/31/24 02/10/25 History Allergies/Adverse Reactions Allergy/AdvReac Type Severity Reaction Status Date / Time tramadol Allergy Severe ADR-Vomitin Verified 11/10/24 09:01 g Pertinent History/Comorbid Conditions* Medical History (Updated 12/05/24 @ 09:46 by Last Culver MD) IBS (irritable bowel syndrome) Surgical History (Updated 01/08/23 @ 14:30 by Gurdeep Go MD) History of cholecystectomy Family History (Updated 01/08/23 @ 13:49 by Rylee Yarbrough LPN) Diabetes Heart disease Lung disease Hypertension Stroke Denies family history of Liver disease CAD (coronary artery disease) Aneurysm Autoimmune disease Clotting disorder Dementia Hyperlipidemia Hyperthyroidism Hypothyroidism Psychiatric illness Chronic kidney disease (CKD) Bleeding disorder Cancer Social History Smoking and tobacco/nicotine status: never used tobacco/nicotine Second hand smoke exposure: Yes Alcohol intake: never Substance/Drug Use: never Lives independently: Yes Current occupational status: unemployed Pertinent Exam Findings alert, oriented x 3, clear to auscultation bilaterally and regular rate & rhythm Recommendations Surgery/Procedure today Coding Level of Care Code Acute Code for Chg Fwd
--- NOTE | 2025-02-11 07:21 | ANES.PREANE2 ---
Pre-Anesthetic Assessment Height/Weight: Height 5 ft 4 in Weight 280 lb Temp Pulse Resp BP Pulse Ox O2 Del Method 97.1 F L 107 H 18 118/58 95 Room Air 02/11/25 07:19 02/11/25 07:19 02/11/25 07:19 02/11/25 07:19 02/11/25 07:19 02/11/25 07:20 Preop Diagnosis: desires permanent sterilization Operation Date: 02/11/25 08:25 Proposed Procedures p Laparoscopic BILATERAL Salpingectomy 84921 Z30.2(Bilateral) - Last Culver MD Was Beta Gem taken within 24 hours: N/A Was Clonidine taken within 24 hours: N/A Social No alcohol and No tobacco Smokes marijuana Exam alert, oriented x 3 and regular rate & rhythm Airway Submandibular: within normal limits Cervical ROM: within normal limits Mallampati: Class III Comments: Comments: Peritonsillar disease, exposed roots. Denies any loose teeth Anesthetic Plan ASA status: 3 Anesthesia: General Other: No prior issues with anesthesia NPO since yesterday evening History of depression, PTSD, anxiety BMI of 48 Smokes marijuana METs greater than 4 Plan for GETA Medications/Allergies Home Medications ?Medication ?Instructions ?Recorded ?Confirmed ?Last Taken ?Type sertraline 100 mg tablet 100 mg PO DAILY #30 tabs 06/04/23 02/10/25 02/10/25 Rx venlafaxine 37.5 mg 37.5 mg PO DAILY #30 caps 06/04/23 02/10/25 02/10/25 Rx capsule,extended release 24 hr (Effexor XR) buspirone 5 mg tablet 5 mg PO BID 03/31/24 02/10/25 02/10/25 History Allergies Allergy/AdvReac Type Severity Reaction Status Date / Time tramadol Allergy Severe ADR-Vomitin Verified 11/10/24 09:01 g [facility] Anesthesia Medical History (Updated 12/05/24 @ 09:46 by Last Culver MD) IBS (irritable bowel syndrome) Surgical History History of cholecystectomy Family History Other Diabetes Heart disease Hypertension Lung disease Stroke Denies family history of Liver disease CAD (coronary artery disease) Aneurysm Autoimmune disease Clotting disorder Dementia Hyperlipidemia Hyperthyroidism Hypothyroidism Psychiatric illness Chronic kidney disease (CKD) Bleeding disorder Cancer Social History (Updated 11/10/24 @ 09:03 by Wiliam Bates CNA) Smoking and tobacco/nicotine status: never used tobacco/nicotine Second hand smoke exposure: Yes Alcohol intake: never Substance/Drug Use: never Lives independently: Yes Current occupational status: unemployed
--- NOTE | 2025-02-11 08:01 | W.PM.OPSUD ---
Surgery/Procedure H&P Update DATE OF PROCEDURE: February 11, 2025 DATE H&P PERFORMED: 02/11/25 H&P UPDATE INFORMATION: I have reviewed H&P completed within last 30 days, I have examined patient prior to procedure and No changes to prior documentation PREOP DIAGNOSIS: desires permanent sterilization PLANNED PROCEDURE: Operation Date: 02/11/25 08:25 Proposed Procedures p Laparoscopic BILATERAL Salpingectomy 04505 Z30.2(Bilateral) - Last Culver MD
[2025-02-11] MEDS: fentaNYL 50 mcg/mL INJ 2mL IVP (09:41)
--- NOTE | 2025-02-11 10:30 | ANE.PACU2 ---
Inpatient post-anesthesia follow up: Airway intact: Yes Vital signs: Temperature 97.5 F Pulse Rate 69 Respiratory Rate 17 Blood Pressure 117/71 Pulse Oximetry 96 Oxygen Delivery Me thod Room Air Oxygen Flow Rate Fraction of Inspir ed Oxygen Hydration adequate: Yes Nausea and vomiting: No Pain level: 1 Mental status: Baseline
--- NOTE | 2025-02-11 10:40 | P.OP_ITS ---
Operative Report Date of procedure: February 11, 2025 Pre-op diagnosis: desires permanent sterilization Post-op diagnosis: same Post-op findings: normal uterus, tubes, and ovaries Procedure done: laparoscopic bilateral salpingectomy Implants: none Specimens removed/disposition: bilateral fallopian tube segments Surgeon: Last Culver MD Anesthesia: General Estimated blood loss (mL): 5 Complications: none Findings: see above Condition: stable Disposition: PACU Brief History: 29 y.o. desires permanent sterilization Procedure: The patient was taken to the OR and placed on the table. General endotracheal anesthesia was induced. The abdomen was then prepped and draped in the usual fashion. A 2 mm incision was made in the left upper quadrant 3 cm from the inferior costal angle. A Veress needle was placed into the abdominal cavity. Adequate pneumoperitoneum was achieved. A 5 mm subumbilical skin incision was made. A 5 mm trocar with sheath was then inserted into the peritoneal cavity under direct visualization with the laparoscope. Two separate 5 mm incisions were made in the right and left mid-quadrants. 5 mm trocars with sheaths were then inserted into the peritoneal cavity under direct visualization with the laparoscope. The right fallopian tube was then identified to its fimbrial end. Starting at the fimbrial end, the mesosalpinx was then coagulated and cut using the Ligasure. The right fallopian tube was excised and removed via one of the ports. This was sent to pathology. There was no bleeding seen. Similarly, the left fallopian tube was identified to its fimbrial end. The left fallopian tube was excised and removed, sent to pathology. There was no bleeding. All instruments were then removed from the peritoneal cavity after the pneumoperitoneum was allowed to escape. The skin incisions were closed using 3- O chromic in subcuticular fashion. Dermabond was applied. The patient was then placed supine and awakened, taken the the PACU in good condition. Postop condition: stable EBL: 5 cc Complications: none Sponge, needles, and instruments counts correct x two
== END 2025-02-11 10:49 | disposition home or self-care (01) ==
PROVIDERS: PCP Family Medicine; Visit Provider Obstetrics & Gynecology
PROC: (CPT 58661; principal; 2025-02-11 08:15)
DX: Z30.2 Encounter for sterilization (principal); N83.8 Other noninflammatory disorders of ovary, fallopian tube and broad ligament; F43.10 Post-traumatic stress disorder, unspecified; F41.8 Other specified anxiety disorders; F12.90 Cannabis use, unspecified, uncomplicated
CPT/HCPCS: 58661; 88302; A4216; J1100; J2250; J2405; J2704; J3010; J3490; J3535; J7030; J9999